=== PATIENT | male | born 2000 | race American Indian/Alaskan Native ===

== ENCOUNTER 2018-03-27 17:17 | Emergency (ER) | payer SELFPAY ==
[2018-03-27 17:44] VITALS: BP 108/64
--- NOTE | 2018-03-27 19:54 | Emergency Department Report ---
ED Rash HPI - HPI Chief Complaint: Skin Rash Stated Complaint: UNKNOWN SORE ON PENIS Time Seen by Provider: 03/27/18 19:35 Duration: 3 Days Location: Other (reports sore to penis 3 days.) Suspected Cause: Unknown Rash Symptoms: Yes Blistering (sore to penis not painful), No Itching, No Facial Swelling, No Tongue/Oral Swelling, No Breathing Difficulties, No Choking Sensation, No Wheezing/Dyspnea, No Peeling, No Fever, No Lightheaded, No Malaise , No Myalgias Other History: This is a 18-year-old male he reports that he has sore to his penis. 3 days. Denies any pain. Denies any penile discharge or urinary burning frequency or urgency. Denies any abdominal pain. Denies any fever chills. Patient reports that he has had STD in the past and has been treated. No known STD at present ED Review of Systems ROS: Stated complaint: UNKNOWN SORE ON PENIS Other details as noted in HPI Constitutional: denies: chills, fever Eyes: denies: eye pain, eye discharge ENT: denies: ear pain, throat pain Respiratory: denies: cough, shortness of breath, SOB with exertion, SOB at rest , stridor, wheezing Cardiovascular: denies: chest pain, palpitations Gastrointestinal: denies: abdominal pain, nausea, vomiting, diarrhea, constipation Genitourinary: other (penile rash). denies: urgency, dysuria, frequency, hematuria, discharge, testicular pain, testicular mass Musculoskeletal: denies: back pain, joint swelling, arthralgia Skin: lesions (penis). denies: rash, pruritus Neurological: denies: headache, weakness, paresthesias ED Past Medical Hx - Past Medical History Previous Medical History?: Yes Additional medical history: Chlamydia - Surgical History Past Surgical History?: No - Family History Family history: no significant - Social History Smoking Status: Current Every Day Smoker Substance Use Type: Alcohol - Medications Home Medications: Home Medications Medication Instructions Recorded Confirmed Last Taken Type No Known Home Medications [No 03/27/18 03/27/18 Unknown History Reported Home Medications] Rash Exam - Exam General: Vital signs noted. No distress. Alert and acting appropriately. This is a 18-year-old male well-nourished well-developed in no acute distress. HEENT: No Periorbital Edema, No Conjuctival Injection, No Chemosis, No Perioral Edema, No Tongue Edema, No Uvular Edema, No Compromised Airway, No Drooling Lungs: Yes Good Air Exchange, No Wheezes, No Ronchi, No Stridor, No Cough, No Labored Respirations, No Retractions, No Use of Accessory Muscles, No Other Abnormal Lung Sounds Heart: Yes Regular (S1, S2), No Murmur Skin: Yes Other (isolated lesion to left scrotal area. No cellulitis and nontender to palpate. No testicular abnormality noted. No penile rash or lesion. No penile discharge. Bilateral inguinal lymphadenopathy. Genital exam is normal except he has isolated lesion that is nontender to palpate.), No Urticarial Rash, No Maculopapular Rash, No Morbilliform rash, No Bulla(e), No Excoriations, No Weeping, No Tenderness, No Erythema, No Edema, No Encrustations Other: Positive: Abdomen Normal, Neurologic Normal, Musculoskeletal Normal ED Course Vital Signs 03/27/18 17:42 Temperature 98.5 F Pulse Rate 78 Respiratory 16 Rate Blood Pressure 108/64 O2 Sat by Pulse 100 Oximetry - Reevaluation(s) Reevaluation #1: 03/27/18 20:00 Bicillin 2.4 million Units IM times one dose. RPR and patient to return to ER in 2-3 days to get results ED Medical Decision Making - Medical Decision Making This is a 18-year-old male who reports that he has sore to his penis 3 days. Denies any pain or any other symptoms. He is here to be evaluated. Pt was examined by myself and noted to have isolated lesion to left scrotal area that is nontender to palpate. No testicular abnormality, no penile rash or lesions. No penile drainage. He does have bilateral inguinal lymphadenopathy. I discuss with patient based on my physical findings there is a high probability that he has STD referred to syphilis and it is usually treated with penicillin but she received Bicillin 2.4 million units IM 1, RPR drawn and sent and patient instructed to return to the emergency room and 2-3 days to have resolved and for further information on follow-up. Patient voiced understanding the discharge diagnosis, treatment plan and need to follow-up. No adverse reaction from medication. Patient discharged home per emergency room in stable condition with instructions to return in 2-3 days. I also instructed in the N he partner that he has on safe sex which should be notified to include the one that he is within the room at present. I instructed her that she can go to the health department to get checked as she is not here as a patient. Solitary painless penile lesion-Bicillin, RPR and to return to emergency room in 2-3 days for results Critical care attestation.: If time is entered above; I have spent that time in minutes in the direct care of this critically ill patient, excluding procedure time. ED Disposition Clinical Impression: Penile lesion, Lymphadenopathy, inguinal Disposition: [id number] TO HOME OR SELFCARE Is pt being admited?: No Does the pt Need Aspirin: No Condition: Stable Instructions: Sexually Transmitted Diseases (ED), Safe Sex (ED), Syphilis (ED) Additional Instructions: Please return to the emergency room in 2-3 days to have resolved syphilis test. If this is positive he will be directed to the health department to get further treatment. Please practice safe sex Please notify your partners that your treated for STD to include syphilis emergency room and they will need to go to the health department to get tested. This is a STD , so please refrain from having sexual activity until you are instructed further by provider. Referrals: return to, emergency room in 2-3 days [Other] - 03/29/18 (For results of syphilis test ) Forms: Work/School Release Form(ED)
[2018-03-27] MEDS ORDERED: BICILLIN L-A IM ONE (19:56)
== END 2018-03-27 20:37 | disposition home or self-care (01) ==
LOC: ED 17:17
DX: R59.1 Generalized enlarged lymph nodes (principal)
CPT/HCPCS: 36415; 86592; 96372; 99283; J0561